=== PATIENT | female | born 1950 | race Two or more races ===

== ENCOUNTER 2025-02-12 10:05 | Emergency (ER) | payer OTHER ==
[~2025-02-12] VITALS: Ht 154.9 cm; Wt 81.6 kg
[2025-02-12] MEDS ORDERED: LOSARTAN POTASS25 MG PO (10:55)
[2025-02-12] MEDS ORDERED: KETOROLAC TROMETHAMINE 60 MG VIAL IM ONE ×2 (11:55→12:00)
[2025-02-12 12:14] LABS: HEMOGLOBIN 13.2 g/dL (12.0-15.00); MEAN CELL VOLUME 88.2 fL (80.00-100.00); MEAN CORPUSCULAR HEMOGLOBIN 29.9 pg (27.00-32.0); MEAN CORPUSCULAR HGB CONC 33.9 g/dl (32.0-36.0); PLATELET COUNT 284 K/uL (150-450); RED BLOOD COUNT 4.42 M/uL (4.00-6.00); RED CELL DISTRIBUTION WIDTH 13.5 % (11.5-14.5)
[2025-02-12 12:42] LABS: ALBUMIN 3.4 gm/dL (3.4-5.0); BILIRUBIN TOTAL 0.49 mg/dL (0.3-1.2); CALCIUM 9.4 mg/dL (8.5-10.1); CREATININE SERUM 0.71 mg/dL (0.55-1.02); GFR 80.25; GLOBULINA 3.6 G/DL (2.4-3.5); POTASSIUM 3.65 mEq/L (3.5-5.1)
[2025-02-12 13:47] LABS: URINE APPEARANCE Clear; URINE BILIRRUBIN Negative (NEGATIVE); URINE BLOOD Negative; URINE COLOR Yellow; URINE GLUCOSE Negative (NEGATIVE); URINE KETONE Negative (NEGATIVE); URINE LEUKOCYTE Trace; URINE NITRATE Negative; URINE PROTEIN Negative (NEGATIVE); URINE UROBILINOGEN 0.2 E.U./dl
[2025-02-12 13:51] LABS: URINE BACTERIA 854.1 uL (0.0-1933); URINE EPITHELIAL CELLS 38.2 uL (0.0-38.8); URINE WBC 15.3 uL (0.0-23.2)
[2025-02-12 13:54] LABS: URINE CAST 0.14 uL (0.0-1.40); URINE RBC 1.4 uL (0.0-20.8)
== END 2025-02-12 16:40 | disposition home or self-care (01) ==
LOC: ER 10:06
PROVIDERS: Emergency Medicine
DX: M54.9 Dorsalgia, unspecified (principal); M46.96 Unspecified inflammatory spondylopathy, lumbar region; R10.9 Unspecified abdominal pain; I10 Essential (primary) hypertension
CPT/HCPCS: 36415; 72100; 96372; 99283; J1885